=== PATIENT | female | born 1950 | race Hispanic/Latino ===

== ENCOUNTER 2019-02-24 05:15 | Observation (INO) | payer MEDICARE ==
[2019-02-22 10:43] LABS: BASOPHILS % 0.5 % (0.0-1.0); EOSINOPHILS # (AUTO) 0.1 (0.0-0.4); EOSINOPHILS % 2.1 % (0.0-6.0); HEMATOCRIT 36.4 % (34.2-44.1); HEMOGLOBIN 11.7 g/dL (12.0-16.0); LYMPHOCYTES # (AUTO) 1.3 (1.0-3.2); LYMPHOCYTES % 19.6 % (18.0-39.1); MEAN CORPUSCULAR HEMOGLOBIN 28.9 pg (28-32); MEAN CORPUSCULAR HGB CONC 32.1 g/dL (31-35); MEAN CORPUSCULAR VOLUME 89.9 fL (81-99); MONOCYTES # (AUTO) 0.5 (0.2-0.8); MONOCYTES % 7.3 % (4.4-11.3); NEUTROPHILS # (AUTO) 4.6 (2.1-6.9); NEUTROPHILS % 70.2 % (38.7-80.0); PLATELET COUNT 206 x10e3/uL (140-360); RED BLOOD COUNT 4.05 x10e6/uL (3.6-5.1)
[2019-02-22 10:46] LABS: INR 0.87; PARTIAL THROMBOPLASTIN TIME 30.7 seconds (23.8-35.5); PROTHROMBIN TIME 12.3 seconds (11.9-14.5)
--- NOTE | 2019-02-22 10:51 | Diagnostic Imaging Report ---
EXAM: CHEST 2 VIEWS, PA and lateral DATE: 02/22/2019 10:04 Time stamp on exam: 10:28 AM INDICATION: Preoperative COMPARISON: None FINDINGS: LINES/TUBES: None LUNGS: No consolidations or edema. Linear scarring versus atelectasis in the left lateral lung base PLEURA: No effusions or pneumothorax. HEART AND MEDIASTINUM: Normal size and contour. BONES AND SOFT TISSUES: No acute findings. Degenerative changes of the spine. IMPRESSION: No acute thoracic abnormality. Signed by: Dr. Sung Escobar DO on 02/22/2019 10:48 AM
[2019-02-22 10:58] LABS: ANION GAP 12.7 mmol/L (8-16); CALCIUM 9.8 mg/dL (8.4-10.2); CREATININE, SERUM 0.95 mg/dL (0.57-1.11); POTASSIUM 3.7 mmol/L (3.5-5.1)
[~2019-02-24] VITALS: Ht 149.9 cm; Wt 72.1 kg
[~2019-02-24 05:15] MED LIST: ASPIR 8181 MG PO; COMBIGAN EYE DRO5 ML OP; EQUATE ALLERGY PO; FOLIC ACID1 MG PO; HYDROCHLOROTHIA25 MG PO; LEFLUNOMIDE20 MG PO; LIPITOR20 MG PO; LISINOPRIL10 MG PO; LUMIGAN2.5 M1 OP; MONTELUKAST SOD10 MG PO
--- OUTSIDE RECORDS SUMMARY | 2019-02-24 05:24 | XMS REPORT ---
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 Allergies, Adverse Reactions, Alerts This patient has no known allergies or adverse reactions. Medications This patient has no known medications. Results Test Description Test Time Test Comments Text Results Atomic Results Result Comments CHEST 2 VIEWS 2019-02-22 10:47:00 [place] [address] Patient Name: VELVET GUIDO MR #: [id number] : 1950 Age/Sex: 68/F Req #: [id number] Adm Physician: Ordered by: GRETA LEAVITT MD Report #: [id number] Location: OR Room/Bed: Procedure: [id number] DX/CHEST 2 VIEWS Exam Date: Exam Time: REPORT STATUS: Signed EXAM: CHEST 2 VIEWS, PA and lateral DATE: 02/22/2019 10:04 Time stamp on exam: 10:28 AM INDICATION: Preoperative COMPARISON: None FINDINGS: LINES/TUBES: None LUNGS: No consolidations or edema. Linear scarring versus atelectasis in the left lateral lung base PLEURA: No effusions or pneumothorax. HEART AND MEDIASTINUM: Normal size and contour. BONES AND SOFT TISSUES: No acute findings. Degenerative changes of the spine. IMPRESSION: No acute thoracic abnormality. Signed by: Dr. Ernesto Escobar DO on 02/22/2019 10:48 AM Dictated By: ERNESTO ESCOBAR DO 1048 Transcribed By: MARK on 02/22/19 1048 COPY TO: GRETA LEAVITT MD
[2019-02-24] MEDS ORDERED: GELATIN SPONGE 12-7MM ONE (06:26)
[2019-02-24] MEDS ORDERED: THROMBIN FOR SOLN 5,000 UNIT VIAL ONE (06:26)
[2019-02-24] MEDS ORDERED: BUPIVACAINE 0.5%/EPI 30 ML SDV INJ ONE (06:26)
[2019-02-24] MEDS ORDERED: BACITRACIN 50,000 UNIT VIAL ONE (06:27)
[2019-02-24] MEDS ORDERED: CEFAZOLIN SOD 2 GM/D5W 50ML 50 ML IV ONE (06:50)
[2019-02-24] MEDS ORDERED: ACETAMINOPHEN 1000 MG/100 ML 100 ML IV ONE (07:01)
[2019-02-24] MEDS ORDERED: IBUPROFEN 250 ML IV ONE (07:02)
[2019-02-24] MEDS ORDERED: LIDOCAINE HCL (LTA) 4 ML SOLN ONE (07:02)
--- NOTE | 2019-02-24 09:12 | Diagnostic Imaging Report ---
EXAM: Lumbar spine radiograph-1 view INDICATION: Intraoperative localization of spinal level. COMPARISON: None FINDINGS: Limited portable lateral crosstable radiograph. Two markers are noted, the superior most marker overlies the mid L3 vertebral body, and the inferior marker overlies the L3-L4 interspace. There is grade 1 anterolisthesis of L4 on L5. There are moderate degenerative disc changes, most pronounced at on L2 and L2-L3. There are moderate facet degenerative changes, most pronounced at L3-L4 and L4-L5. IMPRESSION: Intraoperative lumbar spine radiograph for localization as above. Signed by: Dr. Howard Hill MD on 02/24/2019 9:09 AM
[2019-02-24] MEDS ORDERED: OXYCODONE/ACETAMINOPHEN 5-325 1 EACH TABLET PO PRN ×2 (09:15→11:30)
[2019-02-24] MEDS ORDERED: ACETAMINOPHEN 325 MG TAB PO PRN (09:15)
[2019-02-24] MEDS ORDERED: CARISOPRODOL 350 MG TAB PO PRN (09:15)
[2019-02-24] MEDS ORDERED: MAGNESIUM/ALUMINUM/SIMETHICONE 30 ML UDC PO PRN (09:15)
[2019-02-24] MEDS ORDERED: ZOLPIDEM TARTRATE 5 MG TAB PO PRN (09:15)
[2019-02-24] MEDS ORDERED: HYDROMORPHONE 2MG/ML 2 MG/ML ML IV PRN ×2 (09:15→11:30)
[2019-02-24] MEDS ORDERED: ONDANSETRON HCL INJ 2MG/ML 2ML 2 MG/ML VIAL IV PRN (09:15)
[2019-02-24] MEDS ORDERED: PROMETHAZINE HCL (IM) 25 MG/ML VIAL IM PRN (09:15)
[2019-02-24] MEDS ORDERED: MORPHINE SULFATE 5 MG/ML VIAL IM PRN (09:15)
--- NOTE | 2019-02-24 09:16 | Diagnostic Imaging Report ---
EXAM: Lumbar spine radiograph-1 view INDICATION: Intraoperative localization of spinal level. COMPARISON: Lumbar spine radiograph 02/24/19 8:07 AM. FINDINGS: Limited portable lateral crosstable radiograph. There is a marker which overlies the inferior articulating facet of L3 between the L3 and L4 spinous processes. There is grade 1 anterolisthesis of L4 on L5. There is minimal retrolisthesis of L2 on L3. There are moderate degenerative disc changes, most pronounced at on L2 and L2-L3. There are moderate facet degenerative changes, most pronounced at L3-L4 and L4-L5. There is likely bony neural foraminal stenosis at L5-S1. IMPRESSION: Intraoperative lumbar spine radiograph for localization as above. Signed by: Dr. Howard Hill MD on 02/24/2019 9:12 AM
[2019-02-24 10:08] VITALS: BP 207/94
[2019-02-24 10:40] VITALS: BP 170/80
--- NOTE | 2019-02-24 10:54 | NUR ---
Recvd patient from PACU, AAOx3, Lumbar incision site dressing is intact, no bruise or bleeding noted. denies any chest pain or SOB, Resp even and unlabored.family at bed side.bed in lowest position with side rails X2 up, call light in reach, bed alarm ON. Keep monitoring
[2019-02-24 11:22] VITALS: BP 170/90
[2019-02-24] MEDS ORDERED: ROCURONIUM BROMIDE 10 MG/ML 5ML VIAL ONE (13:44)
[2019-02-24] MEDS ORDERED: DEXAMETHASONE SOD PHOS INJ 4 MG/ML VIAL ONE (13:44)
[2019-02-24] MEDS ORDERED: ATROPINE SULFATE 1 MG/ML VIAL ONE (13:44)
[2019-02-24] MEDS ORDERED: LIDOCAINE HCL 2% JELLY 5 ML TUBE ONE (13:44)
[2019-02-24] MEDS ORDERED: LIDOCAINE HCL 2% LOCAL INJ 5 ML SDV VIAL INJ ONE (13:44)
[2019-02-24] MEDS ORDERED: PROPOFOL IV EMULSION 10 MG/ML 20 ML VIAL ONE (13:44)
[2019-02-24] MEDS ORDERED: SEVOFLURANE INHAL SOLN 250 ML PEN BTL ONE (13:44)
[2019-02-24] MEDS: CEFAZOLIN SOD 1 GM/NS 50ML 50 ML IV SCH ×2 (14:16→21:32)
[2019-02-24] MEDS ORDERED: FENTANYL CITRATE/PF 100MCG/2 ML INJ ONE (14:44)
[2019-02-24] MEDS ORDERED: MIDAZOLAM HCL 2 MG/2 ML VIAL ONE (14:44)
[2019-02-24 15:25] VITALS: BP 181/85
[2019-02-24] MEDS: LACTATED RINGER'S 1,000 ML IV SCH (16:25)
[2019-02-24] MEDS ORDERED: BRIMONIDINE/TIMOLOL (OPTH SOLN 5 ML DRPETTE OP SCH (17:00)
--- NOTE | 2019-02-24 18:55 | NUR ---
Received report from previous nurse. Patient in bed. at bedside. call light within reach.
[2019-02-24 20:00] VITALS: BP 186/86
[2019-02-24 20:23] VITALS: BP 186/86
[2019-02-24] MEDS ORDERED: ATORVASTATIN 20 MG TAB PO SCH (21:00)
[2019-02-24] MEDS ORDERED: BIMATOPROST(OPTH) 2.5 ML BOTTLE OP SCH (21:00)
[2019-02-24] MEDS ORDERED: FOLIC ACID 1 MG TAB PO SCH (21:00)
[2019-02-24] MEDS ORDERED: MONTELUKAST SODIUM 10 MG TAB PO SCH (21:00)
[2019-02-24] MEDS ORDERED: LEFLUNOMIDE 20MG PO SCH (21:00)
[2019-02-25 00:25] VITALS: BP 151/73
[2019-02-25] MEDS: LACTATED RINGER'S 1,000 ML IV SCH (03:11)
[2019-02-25 04:42] VITALS: BP 164/75
[2019-02-25] MEDS: CEFAZOLIN SOD 1 GM/NS 50ML 50 ML IV SCH (05:33)
--- NOTE | 2019-02-25 06:59 | NUR ---
Gave report to oncoming nurse. Call light within reach. patient in bed.
[2019-02-25] MEDS ORDERED: NORCO 7.5-3251 EACH PO (07:35)
[2019-02-25 08:16] VITALS: BP 186/94
[2019-02-25] MEDS ORDERED: LISINOPRIL 10 MG TAB PO SCH (09:00)
[2019-02-25] MEDS ORDERED: HYDROCHLOROTHIAZIDE 25 MG TAB PO SCH (09:00)
[2019-02-25] MEDS ORDERED: (Leflunomide 20 MG) PO SCH (09:00)
[2019-02-25] MEDS ORDERED: [UNRECOGNIZED DRUG - REMARK] PO SCH ×2 (09:00)
--- NOTE | 2019-02-28 14:09 | Operative Report ---
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 PROCEDURE: 1. Left L3-4 laminotomy, medial facetectomy, and microsurgical lateral recess decompression, 37866. 2. Left L4-5 laminotomy, medial facetectomy, and microsurgical lateral recess decompression, 46452. ANESTHESIA: General. INDICATIONS: The patient is a 68-year-old woman who presents with multilevel spinal stenosis worst at the lateral recesses at L3-4 and L4-5 on the left, symptomatic with left radicular pain and left-sided unilateral neurogenic claudication. The patient was taken to the operating room for decompression of these two segments. PROCEDURE IN DETAIL: After induction of general anesthesia, the patient was placed on the operating table in prone position over Lexx frame. Lumbar region was prepped and draped in sterile fashion. A preoperative x-ray was obtained. A midline incision was created in the lumbar fascia over the left of midline and subperiosteal dissection was carried out to expose the left side of L3, L4, and L5 lamina and the medial aspect of the facet joint on the left side. Second x-ray confirmed correct localization. The operating microscope was brought in. A high-speed drill equipped with yamilex bur was used to drill the inferior aspect of the lamina of L3, medial aspect of the L3-4 hypertrophic facet joint and the superior aspect of the lamina of L4. The markedly hypertrophic ligamentum flavum was resected and the dural sac and left L4 traversing nerve root were exposed and decompressed. The same procedure was performed at L4-5 by drilling the inferior aspect of the lamina of L4, the medial aspect of the L4-5 hypertrophic facet joint and superior rim of the lamina of L5 to resect the hypertrophic ligamentum flavum and to expose the L5 traversing nerve root. After satisfactory decompression had been achieved at both levels, the wound was copiously irrigated with bacitracin solution. Meticulous hemostasis was secured. Retraction was removed. The platysma was closed with 3-0 Vicryl sutures. The skin was closed with 4-0 Monocryl sutures. Meticulous hemostasis was secured. The lumbar fascia was closed with 0 Vicryl suture. Subcutaneous layer was closed with 2-0 Vicryl sutures. The skin was closed with 3-0 Monocryl sutures and amie. A dressing was applied. The patient was awakened, extubated, and taken to postanesthesia care unit in stable condition. No intraoperative complications were encountered. Estimated blood loss was 10 mL. Erik Ovalles MD PP/KAMLESH /[id number]
== END 2019-02-25 08:10 | disposition home or self-care (01) ==
LOC: OR 05:15 → PACU V 09:06 → IMCU 09:30
PROVIDERS: ADMIT Neurological Surgery; ATTEND Neurological Surgery
DX: M48.062 Spinal stenosis, lumbar region with neurogenic claudication (principal); Z88.2 Allergy status to sulfonamides; E78.5 Hyperlipidemia, unspecified; I10 Essential (primary) hypertension; H40.9 Unspecified glaucoma; M19.90 Unspecified osteoarthritis, unspecified site; Z01.810 Encounter for preprocedural cardiovascular examination; Z01.812 Encounter for preprocedural laboratory examination; Z01.811 Encounter for preprocedural respiratory examination
CPT/HCPCS: 36415; 63047; 63048; 71046; 72020; 80048; 85025; 85610; 85730; 86850; 86900; 88304; 93005; G0378 ×2; J0131; J0461; J0690 ×3; J1100; J2001 ×2; J2250; J2704; J7121 ×2

== ENCOUNTER 2022-12-26 14:38 | Emergency (ER) | payer MEDICARE ==
[~2022-12-26] VITALS: Ht 149.9 cm; Wt 72.1 kg
[~2022-12-26 14:38] MED LIST changes: +NORCO 7.5-3251 EACH PO
[2022-12-26] MEDS ORDERED: ASPIRIN 81 MG CHEW TAB PO ONE (15:45)
[2022-12-26] MEDS ORDERED: ACETAMINOPHEN 325 MG TAB PO ONE (15:45)
[2022-12-26] MEDS ORDERED: SODIUM CHLORIDE 0.9% 1000ML 1,000 ML IV ONE (15:45)
[2022-12-26 16:05] LABS: BASOPHILS % 0.3 % (0.0-1.0); EOSINOPHILS # (AUTO) 0.1 (0.0-0.4); EOSINOPHILS % 0.4 % (0.0-6.0); HEMATOCRIT 35.9 % (34.2-44.1); HEMOGLOBIN 11.9 g/dL (12.0-16.0); LYMPHOCYTES % 8.7 % (18.0-39.1); MEAN CORPUSCULAR HGB CONC 33.1 g/dL (31-35); MEAN CORPUSCULAR VOLUME 87.3 fL (81-99); MONOCYTES # (AUTO) 0.9 (0.2-0.8); MONOCYTES % 7.5 % (4.4-11.3); NEUTROPHILS # (AUTO) 9.9 (2.1-6.9); NEUTROPHILS % 82.6 % (38.7-80.0); RED BLOOD COUNT 4.11 x10e6/uL (3.6-5.1); RED CELL DISTRIBUTION WIDTH 12.2 % (11.7-14.4)
[2022-12-26 16:11] LABS: INR 1.36
[2022-12-26 16:12] LABS: PLATELET COUNT 45 x10e3/uL (140-360)
[2022-12-26 16:21] LABS: ALBUMIN 3.4 g/dL (3.5-5.0); ALBUMIN/GLOBULIN RATIO 0.7 (0.8-2.0); ANION GAP 18.6 mmol/L (8-16); CALCIUM 9.4 mg/dL (8.4-10.2); CREATININE, SERUM 1.04 mg/dL (0.57-1.11); POTASSIUM 3.6 mmol/L (3.5-5.1)
[2022-12-26 16:27] LABS: CREATINE KINASE MB 1.4 ng/mL (0-5.0)
[2022-12-26] MEDS ORDERED: HEPARIN 25,000 UNIT 1,300 UNIT in DEXTROSE 5% 250ML 250 ML IV SCH (16:30)
[2022-12-26] MEDS ORDERED: HEPARIN SOD (PORCINE) 5,000 UNIT/ML VIAL IV ONE (16:45)
[2022-12-26] MEDS ORDERED: IOPAMIDOL 370 MG/ML 100 ML INFUS..BTL INJ ONE (16:55)
[2022-12-26] MEDS ORDERED: HEPARIN 25,000 UNIT DRIP IV ONE (16:59)
[2022-12-26] MEDS ORDERED: HEPARIN 25,000 UNIT 1,000 UNIT in DEXTROSE 5% 250ML 250 ML IV SCH (17:00)
[2022-12-26 17:14] LABS: BASOPHILS # (AUTO) 0.1 (0.0-0.1); BASOPHILS % 0.5 % (0.0-1.0); EOSINOPHILS % 0.2 % (0.0-6.0); HEMATOCRIT 33.4 % (34.2-44.1); HEMOGLOBIN 10.9 g/dL (12.0-16.0); LYMPHOCYTES % 9.6 % (18.0-39.1); MEAN CORPUSCULAR HEMOGLOBIN 28.7 pg (28-32); MEAN CORPUSCULAR HGB CONC 32.6 g/dL (31-35); MEAN CORPUSCULAR VOLUME 87.9 fL (81-99); MONOCYTES # (AUTO) 0.8 (0.2-0.8); MONOCYTES % 7.3 % (4.4-11.3); NEUTROPHILS # (AUTO) 8.7 (2.1-6.9); RED CELL DISTRIBUTION WIDTH 12.3 % (11.7-14.4)
[2022-12-26 17:21] LABS: PLATELET COUNT 42 x10e3/uL (140-360)
[2022-12-26 19:04] LABS: INR 1.55; PROTHROMBIN TIME 18.8 seconds (11.9-14.5)
[2022-12-27 00:17] VITALS: BP 137/79
== END 2022-12-27 00:35 | disposition short-term general hospital (02) ==
LOC: ER 14:56
DX: M79.662 Pain in left lower leg (principal); I82.462 Acute embolism and thrombosis of left calf muscular vein; D69.6 Thrombocytopenia, unspecified; I26.99 Other pulmonary embolism without acute cor pulmonale; Z20.822 Contact with and (suspected) exposure to COVID-19; R94.31 Abnormal electrocardiogram [ECG] [EKG]
CPT/HCPCS: 36415; 71045; 71260; 80053; 82550; 82553; 83605; 84484; 85025; 85379; 85384; 85610; 85730; 86850; 86900; 87040; 93005; 93971; 99285; J1644; J7030; Q9967; U0002